=== PATIENT | male | born 1970 | race Caucasian/White ===

== ENCOUNTER 2017-04-17 08:21 | Day surgery (SDC) | payer BC ==
[~2017-04-17] VITALS: Ht 180.3 cm; Wt 70.0 kg
[~2017-04-17 08:21] MED LIST: ANORO ELLIPTA1 EACH IH; DAY TIME COLD1 EACH PO; K-DUR20 MEQ PO; LASIX20 MG PO; METOLAZONE2.5 MG PO; MOTRIN IB200 MG PO; MUCINEX600 MG PO; VENTOLIN HFA18 GM IH; ZITHROMAX Z-PA250 MG PO
[2017-04-17 10:52] LABS: BASE EXCESS 10.1 mEq/L (-3 to +3); BICARBONATE 37.9 mEq/L (22-26); CARBOXY HGB 4.5 % (0-5); COMMENTS - BLOOD GASES DRAWN BY CATH LAB; METHEMOGLOBIN 1.6 % (0-1.5); PCO2 64 mm Hg (35-45); PO2 38 mm Hg (80-100); SITE PA; pH 7.38 (7.35-7.45)
[2017-04-17 10:55] LABS: BASE EXCESS 9.5 mEq/L (-3 to +3); BICARBONATE 36.9 mEq/L (22-26); CARBOXY HGB 4.3 % (0-5); COMMENTS - BLOOD GASES DRAWN BY CATH LAB; METHEMOGLOBIN 1.8 % (0-1.5); PCO2 61 mm Hg (35-45); PO2 36 mm Hg (80-100); SITE SVC; pH 7.39 (7.35-7.45)
[2017-04-17 10:58] LABS: BASE EXCESS 8.4 mEq/L (-3 to +3); BICARBONATE 34.9 mEq/L (22-26); CARBOXY HGB 4.3 % (0-5); COMMENTS - BLOOD GASES DRAWN BY CATH LAB; METHEMOGLOBIN 1.5 % (0-1.5); PCO2 55 mm Hg (35-45); PO2 114 mm Hg (80-100); SITE RR; pH 7.41 (7.35-7.45)
== END 2017-04-17 15:15 | disposition home or self-care (01) ==
LOC: CATH 08:21 → SDC 10:00 → CATH 15:15
PROVIDERS: Internal Medicine Cardiovascular Disease
DX: I25.10 Atherosclerotic heart disease of native coronary artery without angina pectoris (principal); J44.9 Chronic obstructive pulmonary disease, unspecified; G47.30 Sleep apnea, unspecified; I27.20 Pulmonary hypertension, unspecified; F17.210 Nicotine dependence, cigarettes, uncomplicated
CPT/HCPCS: 36600; 82803; 93005; C1760; C1769; C1887; C1894; J1644; J2250; J3010; J7040